=== PATIENT | male | born 1980 | race Caucasian/White ===

== ENCOUNTER 2016-08-27 12:33 | Emergency (ER) | payer OTHER ==
[~2016-08-27] VITALS: Ht 182.9 cm; Wt 94.1 kg
[~2016-08-27 12:33] MED LIST: NAPR1TAB9 PO
[2016-08-27 12:39] VITALS: Ht 182.9 cm; Wt 94.1 kg
[2016-08-27] MEDS ORDERED: SODIUM CHLORIDE 0.9% 1000ML 1,000 ML IV STA (13:10)
--- NOTE | 2016-08-27 13:15 | EMERGENCY ROOM VISIT NOTE ---
History First contact with patient: 13:01 Chief Complaint: CHEST PAIN Stated Complaint: CHEST PAIN Nursing Triage Summary: pt has had this same chest pain for 1-2 years. pt points to left shoulder as location of pain. pain is constant for a few hours once or twice a week. has never seen a pcp. states had dry mouth with it today and felt weaker. History of Present Illness The patient is a 36 year old male who presents to the Emergency Department by private vehicle for evaluation of his LEFT sided chest pain. The patient reports that while working at approximately 9 to 9:30 AM, he noticed pain to the LEFT-sided anterior chest. He is experienced similar symptoms over the past year. 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 He is uncertain if his pain is worse with exertion. He reports pain radiates back to his back as well. He denies any radiation down the arm or into the jaw. He reports no personal history of cardiac disease. He has a family history of father and paternal grandfather who in their 50s secondary to MIs. The patient denies any short suppressed. He does report some palpitations as well as dizziness with changes in position. He rates his current discomfort as 2/10. He denies any headaches , fevers, chills, recent illness, cough, nausea, vomiting, or abdominal pain. Review of Systems A complete 10-point Review of Systems was discussed with the patient, with pertinent positives and negatives listed in the History of Present Illness. All remaining Review of Systems questions can be considered negative unless otherwise specified. Past Medical/Surgical History Medical Problems: (1) Abscess (2) Allergic reaction Family History FH: heart disease Social History Smoking Status: Current Every Day Smoker Smokeless Tobacco Use: No Drug Use: none, other Marital Status: single Occupation Status: employed Current/Historical Medications No Active Prescriptions or Reported Meds Allergies Coded Allergies: No Known Allergies (Unverified , 01/27/15) Physical Exam Vital Signs Date Time Temp Pulse Resp B/P Pulse Ox O2 Delivery O2 Flow Rate FiO2 08/27/16 16:47 37.2 70 18 111/57 99 08/27/16 16:11 70 18 111/57 99 08/27/16 14:13 97 Room Air 08/27/16 14:03 81 18 97 08/27/16 13:33 84 9 98 08/27/16 13:27 111/57 08/27/16 13:03 91 7 08/27/16 12:52 101 08/27/16 12:44 Room Air 08/27/16 12:39 37.2 98 18 168/85 97 Room Air Pain Rating (0-10): 2 Physical Exam VITAL SIGNS - Vital signs and nursing notes were reviewed. GENERAL - 36-year-old male appearing his stated age who is in no acute distress. Communicates well with provider and answers questions appropriately. LUNGS - Chest wall symmetric without accessory muscle use, intercostals retractions, or central cyanosis. Normal vesicular breath sounds CTA B/L. No wheezes, rales, or rhonchi appreciated. CARDIAC - RRR with S1/S2. No murmur, rubs, or gallops appreciated. No reproducible tenderness to palpation appreciated over the anterior chest wall. ABDOMEN - Abdominal contour flat and without pulsations or visible masses. BS normoactive all four quadrants. No tenderness, palpable masses, hepatosplenomegaly, or ascites noted. EXTREMITIES - No clubbing or peripheral cyanosis. No pretibial edema present. +3 /5 radial and dorsalis pedis pulses palpated throughout. +5/5 strength noted in UE/LE bilaterally. NEUROLOGIC - Cranial nerves II through XII grossly intact. Sensory intact to light touch throughout. PSYCH - A&Ox3 and cooperates fully with examiner. Pt is very pleasant and interacts well with examiner. Medical Decision & Procedures ER Provider Diagnostic Interpretation: Radiological imaging and reports were reviewed by myself. Radiologist's Interpretation as follows: CHEST ONE VIEW PORTABLE CLINICAL HISTORY: Atypical chest pain COMPARISON STUDY: 01/23/2015 FINDINGS: The cardiac and mediastinal contours are normal. There is no evidence of focal pulmonary consolidation. There is no evidence of failure. No pleural effusions are visualized.[ IMPRESSION: No active disease in the chest. Laboratory Results 08/27/16 12:50 Red Blood Count 4.95, Mean Corpuscular Volume 91.5, Mean Corpuscular Hemoglobin 31.5, Mean Corpuscular Hemoglobin Concent 34.4, Mean Platelet Volume 9.3, Neutrophils (%) (Auto) 69.8, Lymphocytes (%) (Auto) 22.8, Monocytes (%) (Auto) 5.9, Eosinophils (%) (Auto) 0.9, Basophils (%) (Auto) 0.3, Neutrophils # (Auto) 4.85, Lymphocytes # (Auto) 1.58, Monocytes # (Auto) 0.41, Eosinophils # (Auto) 0.06, Basophils # (Auto) 0.02 08/27/16 12:50 Test 08/27/16 12:50 08/27/16 14:13 White Blood Count 6.94 K/uL (4.8-10.8) Red Blood Count 4.95 M/uL (4.7-6.1) Hemoglobin 15.6 g/dL (14.0-18.0) Hematocrit 45.3 % (42-52) Mean Corpuscular Volume 91.5 fL (80-100) Mean Corpuscular Hemoglobin 31.5 pg (25-34) Mean Corpuscular Hemoglobin Concent 34.4 g/dl (32-36) Platelet Count 179 K/uL (130-400) Mean Platelet Volume 9.3 fL (7.4-10.4) Neutrophils (%) (Auto) 69.8 % Lymphocytes (%) (Auto) 22.8 % Monocytes (%) (Auto) 5.9 % Eosinophils (%) (Auto) 0.9 % Basophils (%) (Auto) 0.3 % Neutrophils # (Auto) 4.85 K/uL (1.4-6.5) Lymphocytes # (Auto) 1.58 K/uL (1.2-3.4) Monocytes # (Auto) 0.41 K/uL (0.11-0.59) Eosinophils # (Auto) 0.06 K/uL (0-0.5) Basophils # (Auto) 0.02 K/uL (0-0.2) RDW Standard Deviation 45.2 fL (36.4-46.3) RDW Coefficient of Variation 13.6 % (11.5-14.5) Immature Granulocyte % (Auto) 0.3 % Immature Granulocyte # (Auto) 0.02 K/uL (0.00-0.02) Prothrombin Time 11.3 SECONDS (9.0-12.0) Prothromb Time International Ratio 1.1 (0.9-1.1) Activated Partial Thromboplast Time 25.2 SECONDS (21.0-31.0) Partial Thromboplastin Ratio 1.0 Anion Gap 8.0 mmol/L (3-11) Est Creatinine Clear Calc Drug Dose 129.3 ml/min Estimated GFR () 119.7 Estimated GFR (Non- 103.3 BUN/Creatinine Ratio 14.7 (10-20) Calcium Level 8.9 mg/dl (8.5-10.1) Magnesium Level 1.8 mg/dl (1.8-2.4) Total Bilirubin 0.7 mg/dl (0.2-1) Aspartate Amino Transf (AST/SGOT) 93 U/L (15-37) Alanine Aminotransferase (ALT/SGPT) 174 U/L (12-78) Alkaline Phosphatase 103 U/L (45-117) Total Creatine Kinase 330 U/L (39-308) Creatine Kinase MB 4.1 ng/ml (0.5-3.6) Creatine Kinase MB Ratio 1.2 (0-3.0) Total Protein 7.9 gm/dl (6.4-8.2) Albumin 4.3 gm/dl (3.4-5.0) Globulin 3.6 gm/dl (2.5-4.0) Albumin/Globulin Ratio 1.2 (0.9-2) Lipase 152 U/L (73-393) Thyroid Stimulating Hormone (TSH) 0.744 uIu/ml (0.300-4.500) Bedside D-Dimer 137 ng/mlFEU (0-450) Bedside Troponin I 0.000 ng/ml (0-0.045) Medications Administered Medications (Trade) Dose Ordered Sig/Saira Route Start Time Stop Time Status Last Admin Dose Admin Sodium Chloride 1,000 ml @ 250 mls/hr Q4H STAT IV 08/27/16 13:10 08/27/16 17:09 DC 08/27/16 13:22 250 MLS/HR Sodium Chloride (Nss 500ml) 500 ml @ 999 mls/hr Q31M STAT IV 08/27/16 14:46 08/27/16 15:16 DC 08/27/16 14:46 999 MLS/HR Procedure Patient was placed on the cardiac/vascular sonographer and monitored throughout the entire extent of their stay. In addition, the patient's pulse oximetry was monitored throughout the entire stay. Any abnormalities or aberrancies were addressed appropriately. ECG Indication: chest pain Rate (beats per minute): 101 Rhythm: sinus tachycardia Findings: no acute ischemic change, no ectopy Comparison ECG Date: no prior available ED Course Patient was seen and evaluated by myself. Labs were drawn, saline lock in place. EKG and chest x-rays were obtained. Patient was hydrated with normal saline. Laboratory results demonstrate no acute leukocytosis, worrisome anemia , or bandemia. Patient has no significant electrolyte abnormalities. Cardiac enzymes are negative. Troponin was negative. Patient was reevaluated and reports feeling much better at this time. He feels less palpitations. He was hydrated with 500 mL normal saline bolus and repeat troponin was obtained. Repeat troponin was negative. Laboratory results and imaging studies were reviewed with the patient who acknowledges understand. The patient was encouraged to follow-up with his primary care provider from today's visit. He was educated on worrisome symptoms for return visit to the emergency department. Patient discharged home afebrile and in good condition. Medical Decision Given the patient's presentation and stated complaint, I did elect to perform the above-mentioned workup. The patient presents to the emergency Department with complaints of LEFT-sided chest pain and palpitations. He does admit to drinking heavy doses of caffeine this morning. He felt jittery on arrival. He responded well to IV fluid hydration alone. His pain is not exertional. He does have a significant history, however his pain is certainly atypical. EKG is unremarkable. Chest demonstrate no acute findings. Troponin was negative 2 despite ongoing symptoms for the past 8 hours. Patient feels much better at this time. He will decrease his caffeine use. He'll follow-up with his primary care provider from today's visit. He will return to the emergency department in the setting of any changing or worsening symptoms. Patient discharged home in good condition. In the evaluation and treatment of this patient, the following differential diagnoses were considered: NH, ASC, Dysrhythmia, Angina, Mediastinitis, GERD, Esophagitis, PE, Pneumonia, Bronchitis, Costochondritis, Rib Fracture, Zoster. Impression Primary Impression: Left sided chest pain Additional Impression: Palpitations Departure Information Dispostion Home / Self-Care Condition GOOD Prescriptions No Active Prescriptions or Reported Meds Referrals No Doctor, Assigned (PCP) Patient Instructions Chest Pain - [facility], ED Palpitations, My [facility] Additional Instructions You have been treated in the Emergency Department for your Chest Pain and Palpitation. Laboratory results and Imaging Studies have ruled out any cardiac or pulmonary cause of your chest pain. For pain control, you can use the following [id number] medicines (if >12 yo): - Regular strength (325mg/tab) Tylenol (acetaminophen) 2 tabs every 4-6 hours as needed. Do not exceed 12 tablets in a 24 hour period. Avoid taking more than 4 grams (4000 mg) of Tylenol per day. This includes any other sources of acetaminophen you may take on a regular basis. - Regular strength (200 mg/tab) Advil (ibuprofen) 1-2 tabs every 4-6 hours as needed. Do not exceed a dose of 3200 mg per day. You should schedule a follow-up appointment with your Primary Care Provider in 2 -3 days for further evaluation from today's Emergency Department visit. Return to the Emergency Department if your current symptoms worsen despite treatment course outlined above, or if you develop any of the following symptoms : worsening chest pain, associated jaw/arm pain, nausea, dizziness, shortness of breath, bloody cough, or fainting. Problem Qualifiers
[2016-08-27 13:27] LABS: BASO % 0.3 %; BASO ABS # 0.02 K/uL (0-0.2); COMPLETE YES; EOS % 0.9 %; HEMATOCRIT 45.3 % (42-52); IG% 0.3 %; LYMPH % 22.8 %; LYMPH ABS # 1.58 K/uL (1.2-3.4); MEAN CELL VOLUME 91.5 fL (80-100); MEAN CORPUSCULAR HEMOGLOBIN 31.5 pg (25-34); MEAN CORPUSCULAR HGB CONC 34.4 g/dl (32-36); MEAN PLATELET VOLUME 9.3 fL (7.4-10.4); MONO % 5.9 %; NEUT % 69.8 %; PLATELET COUNT 179 K/uL (130-400); RED BLOOD COUNT 4.95 M/uL (4.7-6.1); WHITE BLOOD COUNT 6.94 K/uL (4.8-10.8)
--- NOTE | 2016-08-27 13:47 | DIAGNOSTIC IMAGING REPORT ---
CHEST ONE VIEW PORTABLE CLINICAL HISTORY: Atypical chest pain COMPARISON STUDY: 01/23/2015 FINDINGS: The cardiac and mediastinal contours are normal. There is no evidence of focal pulmonary consolidation. There is no evidence of failure. No pleural effusions are visualized.[ IMPRESSION: No active disease in the chest. Electronically signed by: Lazaro Cruz M.D. 08/27/2016 1:45 PM Dictated Date/Time: 08/27/2016 1:45 PM
[2016-08-27 13:52] LABS: INR 1.1 (0.9-1.1); PROTHROMBIN TIME (PATIENT) 11.3 SECONDS (9.0-12.0)
[2016-08-27 13:59] LABS: BUN/CREATININE RATIO 14.7 (10-20); CALCIUM 8.9 mg/dl (8.5-10.1); CREATININE 0.95 mg/dl (0.60-1.40); MAGNESIUM 1.8 mg/dl (1.8-2.4); POTASSIUM 3.6 mmol/L (3.5-5.1)
[2016-08-27 14:10] LABS: ALB/GLOB RATIO 1.2 (0.9-2); CKMB/CK RATIO 1.2 (0-3.0); THYROID STIMULATING HORMONE 0.744 uIu/ml (0.300-4.500)
[2016-08-27 14:13] VITALS: O2SAT 97
[2016-08-27] MEDS ORDERED: SODIUM CHLORIDE 0.9% 500ML 500 ML IV STA (14:46)
[2016-08-27 16:47] VITALS: BP 111/57; PULSE 70; TEMP 37.2; O2SAT 99
== END 2016-08-27 16:48 | disposition home or self-care (01) ==
LOC: C.EDB 12:34
DX: R07.9 Chest pain, unspecified (principal); R00.2 Palpitations; R00.0 Tachycardia, unspecified; Z82.49 Family history of ischemic heart disease and other diseases of the circulatory system; F17.200 Nicotine dependence, unspecified, uncomplicated

== ENCOUNTER 2016-09-21 10:01 | Emergency (ER) | payer OTHER ==
[~2016-09-21] VITALS: Ht 182.9 cm; Wt 84.8 kg
[2016-09-21 10:06] VITALS: TEMP 37.3; Ht 182.9 cm; Wt 84.8 kg
[2016-09-21 10:42] VITALS: O2SAT 95
[2016-09-21 10:55] LABS: ISTAT CREATININE 0.9 mg/dl (0.6-1.3); ISTAT HEMOGLOBIN 15.6 g/dl (14.0-18.0); ISTAT IONIZED CALCIUM 1.15 mmol/l (1.12-1.32)
--- NOTE | 2016-09-21 10:58 | DIAGNOSTIC IMAGING REPORT ---
SINGLE VIEW CHEST CLINICAL HISTORY: Fever. Sepsis. FINDINGS: 2 AP, portable, upright chest radiographs are compared to study dated 08/27/2016. The examination is degraded by portable technique and patient rotation. The cardiomediastinal silhouette is unremarkable. The lungs and pleural spaces are clear. No pneumothorax is seen. The bony thorax is grossly intact. Nipple piercings are noted. IMPRESSION: No active disease in the chest. Electronically signed by: Roque Mcdermott M.D. 09/21/2016 10:57 AM Dictated Date/Time: 09/21/2016 10:56 AM
[2016-09-21 11:01] LABS: POINT OF CARE TROPONIN I 0.01 ng/ml (0-0.045)
[2016-09-21 12:02] VITALS: BP 127/71; O2SAT 96
--- NOTE | 2016-09-21 12:16 | EMERGENCY ROOM VISIT NOTE ---
History Report prepared by Alistair: Dale Campos Under the Supervision of: Dr. Jesse García D.O. First contact with patient: 10:20 Chief Complaint: CHEST PAIN Stated Complaint: CHEST PAIN Nursing Triage Summary: "I was here 1 month ago for chest pains. pain never got any better. I went to [facility] yesterday and they told me my right side of my heart is faster than the left side." no pain at present time. I was working and my chest was pounding I felt light headed and my arms went numb. patient denies hx of anxiety History of Present Illness The patient is a 36 year old male who presents to the Emergency Room with complaints of chest pain that occurred this morning. He is currently not experiencing this chest pain. The patient was at work this morning when his heart began to pound. He then began to experience a pressure like pain in his chest. His bilateral arms went numb and he was lightheaded as well. He was here in the ED 1 month ago for similar pain. They told him he had a sensitivity to caffeine. He did not drink any this morning. Yesterday, he went to [facility] and was told that his "heart is fast on the right than it is on the left." He denies any history of anxiety. He received an ECG yesterday from his PCP that showed he has RBBB. Source of History: patient Onset: this morning Position: chest Symptom Intensity: minimal Quality: pressure Timing: resolved Associated Symptoms: + numbness Note: He experienced lightheadedness. He denies any other abnormal symptoms. Review of Systems See HPI for pertinent positives & negatives. A total of 10 systems reviewed and were otherwise negative. Past Medical & Surgical Medical Problems: (1) Abscess (2) Allergic reaction Family History FH: heart disease Social History Smoking Status: Former Smoker Smokeless Tobacco Use: No Drug Use: none, other Marital Status: single Occupation Status: employed Current/Historical Medications No Active Prescriptions or Reported Meds Allergies Coded Allergies: No Known Allergies (Unverified , 01/27/15) Physical Exam Vital Signs Date Time Temp Pulse Resp B/P Pulse Ox O2 Delivery O2 Flow Rate FiO2 09/21/16 12:34 71 09/21/16 12:02 78 18 127/71 96 Room Air 09/21/16 10:42 95 Room Air 09/21/16 10:28 83 09/21/16 10:06 37.3 91 18 134/81 94 Room Air Physical Exam CONSTITUTIONAL/VITAL SIGNS: Reviewed / noted above. GENERAL: Non-toxic in appearance. INTEGUMENTARY: Warm, dry, and [place]. HEAD: Normocephalic. EYES: without scleral icterus or trauma. ENT/OROPHARYNX: clear and moist. LYMPHADENOPATHY/NECK: Is supple without lymphadenopathy or meningismus. RESPIRATORY: Lungs clear and equal. CARDIOVASCULAR: Regular rate and rhythm. GI/ABDOMEN: Soft and nontender. No organomegaly or pulsatile mass. No rebound or guarding. Normal bowel sounds. EXTREMITIES: Warm and well perfused. BACK: No CVA tenderness. NEUROLOGICAL: Intact without focal deficits. PSYCHIATRIC: normal affect. MUSCULOSKELETAL: Normally developed with good muscle tone. Medical Decision & Procedures ER Provider Diagnostic Interpretation: Radiology results as stated below per my review and radiologist interpretation: SINGLE VIEW CHEST CLINICAL HISTORY: Fever. Sepsis. FINDINGS: 2 AP, portable, upright chest radiographs are compared to study dated 08/27/2016. The examination is degraded by portable technique and patient rotation. The cardiomediastinal silhouette is unremarkable. The lungs and pleural spaces are clear. No pneumothorax is seen. The bony thorax is grossly intact. Nipple piercings are noted. IMPRESSION: No active disease in the chest. Electronically signed by: Roque Mcdermott M.D. 09/21/2016 10:57 AM Dictated Date/Time: 09/21/2016 10:56 AM Laboratory Results Test 09/21/16 10:41 Bedside Hemoglobin 15.6 g/dl (14.0-18.0) Bedside Hematocrit 46 % (42-52) Bedside D-Dimer 110 ng/mlFEU (0-450) Bedside Sodium 140 mEq/L (135-144) Bedside Potassium 4.4 mEq/L (3.3-5.0) Bedside Chloride 104 mEq/L (101-112) Bedside Total CO2 25 mEq/l (24-31) Anion Gap 16.0 mmol/L (16-25) Bedside Blood Urea Nitrogen 20 mg/dl (7-18) Bedside Creatinine 0.9 mg/dl (0.6-1.3) Bedside Glucose (other) 115 mg/dl (70-99) Bedside Ionized Calcium (Kishor) 1.15 mmol/l (1.12-1.32) Bedside Troponin I 0.010 ng/ml (0-0.045) Laboratory results as stated above per my review. ECG Indication: chest pain Rate (beats per minute): 75 Rhythm: normal sinus Findings: no acute ischemic change, no ectopy ED Course 1020: Previous medical records were reviewed. The patient was evaluated in room B8. A complete history and physical examination was performed. 1217: On reevaluation, the patient is resting. I discussed the results and findings with the patient. He verbalized agreement of the treatment plan. He was discharged home. Medical Decision The differentials considered include acute myocardial infarction, acute coronary syndrome, myocarditis, pericarditis, pericardial effusions /tamponade, esophageal perforation, thoracic aortic dissection, pulmonary embolism, pneumonia, pneumothorax, pancreatitis, shingles, acute cholecystitis, perforated abdominal viscus. Is a 36-year-old male who presents to the ED with a chief complaint of dizziness , can't mouth, chest pain, arm tingling. The patient was seen for the same about a month ago. He states that he quit smoking since that time. He states that his symptoms have been worsening for the past couple weeks. Further details listed above. The patient's symptoms have currently abated. He has a normal exam. His EKG shows a normal sinus rhythm. Troponin is negative. D- dimer is negative. Hemoglobin is normal. PRP is normal. The patient was told results the test. He is felt to be stable for discharge and outpatient follow- up. His PCP can further evaluate his symptoms as an outpatient. Anxiety may be a component. Impression Primary Impression: Non-cardiac chest pain Scribe Attestation The scribe's documentation has been prepared under my direction and personally reviewed by me in its entirety. I confirm that the note above accurately reflects all work, treatment, procedures, and medical decision making performed by me. Departure Information Dispostion Home / Self-Care Prescriptions No Active Prescriptions or Reported Meds Referrals No Doctor, Assigned (PCP) Forms HOME CARE DOCUMENTATION FORM, IMPORTANT VISIT INFORMATION Patient Instructions My [facility] Additional Instructions Follow-up with your doctor for further care and evaluation in 1 week if symptoms persist. Return to the emergency department for worsening or new symptoms or any concerns. You have been examined and treated today on an emergency basis only. This is not a substitute for, or an effort to provide, complete comprehensive medical care. It is impossible to recognize and treat all injuries or illnesses in a single emergency department visit. It is therefore important that you follow up closely with your doctor. Call as soon as possible for an appointment.
[2016-09-21 12:34] VITALS: PULSE 71
== END 2016-09-21 12:49 | disposition home or self-care (01) ==
LOC: C.EDB 10:03
DX: R07.9 Chest pain, unspecified (principal); Z82.49 Family history of ischemic heart disease and other diseases of the circulatory system; Z87.891 Personal history of nicotine dependence

== ENCOUNTER → 2016-10-25 | Outpatient (CLI) | payer OTHER ==
[2016-10-25 13:21] LABS: BASO % 0.3 %; BASO ABS # 0.02 K/uL (0-0.2); COMPLETE YES; EOS % 1.7 %; HEMATOCRIT 46.9 % (42-52); IG% 0.3 %; LYMPH % 23.2 %; LYMPH ABS # 1.52 K/uL (1.2-3.4); MEAN CELL VOLUME 90.9 fL (80-100); MEAN CORPUSCULAR HGB CONC 35.2 g/dl (32-36); MONO % 8.8 %; NEUT % 65.7 %; PLATELET COUNT 186 K/uL (130-400); RED BLOOD COUNT 5.16 M/uL (4.7-6.1); WHITE BLOOD COUNT 6.56 K/uL (4.8-10.8)
[2016-10-25 14:03] LABS: ALT/SGPT 175 U/L (12-78); BLOOD UREA NITROGEN 19 mg/dl (7-18); BUN/CREATININE RATIO 18.9 (10-20); CALCIUM 9.2 mg/dl (8.5-10.1); CARBON DIOXIDE 23 mmol/L (21-32); CHLORIDE 107 mmol/L (98-107); GLUCOSE 91 mg/dl (70-99); POTASSIUM 4.3 mmol/L (3.5-5.1); SODIUM 139 mmol/L (136-145)
[2016-10-25 14:06] LABS: ALB/GLOB RATIO 1.1 (0.9-2); ALKALINE PHOSPHATASE 108 U/L (45-117); AST/SGOT 94 U/L (15-37)
[2016-10-25 14:12] LABS: HEPATITIS B AB POS
[2016-10-25 14:16] LABS: BENZODIAZEPINE, URINE NEG (NEG); COCAINE,URINE NEG (NEG); PHENCYCLIDINE, URINE NEG (NEG)
[2016-10-31 08:00] LABS: HEPATITIS C VIRAL RNA BY PCR 6000000 IU/ML (<15); HEPATITIS C VIRAL RNA(LOG) PCR 6.78 LOG IU/ML (<1.18); LIVER FIBR APOLIPOPROTEIN A-1 154 mg/dL (94-176); LIVER FIBROS ALPHA-2-MACROGLOB 248 mg/dL (106-279); LIVER FIBROSIS GGT 50 U/L (3-90); NECROINFLAMMATION ACT GRADE A3; NECROINFLAMMATION ACT SCORE 0.68
== END | disposition home or self-care (01) ==
LOC: C.LAB1850 11:53
PROVIDERS: ATTEND Internal Medicine Infectious Disease
DX: B18.2 Chronic viral hepatitis C (principal)

== ENCOUNTER → 2016-12-13 | Outpatient (CLI) | payer OTHER ==
[2016-12-13 15:49] LABS: PROTHROMBIN TIME (PATIENT) 11.1 SECONDS (9.0-12.0)
== END | disposition home or self-care (01) ==
LOC: C.LAB 15:14
PROVIDERS: ATTEND Internal Medicine Infectious Disease
DX: B18.2 Chronic viral hepatitis C (principal)

== ENCOUNTER → 2017-01-28 | Outpatient (CLI) | payer OTHER ==
[2017-01-28 16:23] LABS: BASO % 0.3 %; BASO ABS # 0.02 K/uL (0-0.2); COMPLETE YES; EOS % 3.2 %; HEMATOCRIT 43.7 % (42-52); IG% 0.2 %; LYMPH % 32.7 %; LYMPH ABS # 2.13 K/uL (1.2-3.4); MEAN CELL VOLUME 89.9 fL (80-100); MEAN CORPUSCULAR HEMOGLOBIN 32.1 pg (25-34); MEAN CORPUSCULAR HGB CONC 35.7 g/dl (32-36); MONO % 7.1 %; NEUT % 56.5 %; PLATELET COUNT 173 K/uL (130-400); RED BLOOD COUNT 4.86 M/uL (4.7-6.1); WHITE BLOOD COUNT 6.51 K/uL (4.8-10.8)
[2017-01-28 16:49] LABS: ALB/GLOB RATIO 1.2 (0.9-2); ALT/SGPT 38 U/L (12-78); AST/SGOT 28 U/L (15-37); BLOOD UREA NITROGEN 21 mg/dl (7-18); BUN/CREATININE RATIO 21.3 (10-20); CALCIUM 8.9 mg/dl (8.5-10.1); CARBON DIOXIDE 22 mmol/L (21-32); CHLORIDE 110 mmol/L (98-107); GLUCOSE 115 mg/dl (70-99); POTASSIUM 3.6 mmol/L (3.5-5.1); SODIUM 141 mmol/L (136-145)
[2017-01-28 16:50] LABS: ALKALINE PHOSPHATASE 114 U/L (45-117)
[2017-02-01 08:58] LABS: HEPATITIS C VIRAL RNA BY PCR <15 DETECTED IU/ML (<15); HEPATITIS C VIRAL RNA(LOG) PCR <1.18 DETECTED LOG IU/ML (<1.18)
== END | disposition home or self-care (01) ==
LOC: C.LAB1850 14:49
PROVIDERS: ATTEND Internal Medicine Infectious Disease
DX: B18.2 Chronic viral hepatitis C (principal)

== ENCOUNTER → 2017-02-26 | Outpatient (CLI) | payer OTHER ==
[2017-02-26 16:42] LABS: BASO % 0.1 %; BASO ABS # 0.01 K/uL (0-0.2); COMPLETE YES; EOS % 3.1 %; HEMATOCRIT 44.4 % (42-52); IG% 0.2 %; LYMPH ABS # 2.43 K/uL (1.2-3.4); MEAN CELL VOLUME 89.3 fL (80-100); MEAN CORPUSCULAR HEMOGLOBIN 31.8 pg (25-34); MEAN CORPUSCULAR HGB CONC 35.6 g/dl (32-36); MEAN PLATELET VOLUME 9.8 fL (7.4-10.4); MONO % 6.6 %; PLATELET COUNT 178 K/uL (130-400); RED BLOOD COUNT 4.97 M/uL (4.7-6.1); WHITE BLOOD COUNT 9.33 K/uL (4.8-10.8)
[2017-02-26 17:10] LABS: ALT/SGPT 42 U/L (12-78); AST/SGOT 29 U/L (15-37); BLOOD UREA NITROGEN 17 mg/dl (7-18); BUN/CREATININE RATIO 17.8 (10-20); CARBON DIOXIDE 27 mmol/L (21-32); CHLORIDE 104 mmol/L (98-107); CREATININE 0.95 mg/dl (0.60-1.40); GLUCOSE 79 mg/dl (70-99); POTASSIUM 3.8 mmol/L (3.5-5.1); SODIUM 138 mmol/L (136-145)
[2017-02-26 17:13] LABS: ALB/GLOB RATIO 1.3 (0.9-2); ALKALINE PHOSPHATASE 116 U/L (45-117)
[2017-03-01 14:08] LABS: HEPATITIS C VIRAL RNA BY PCR <15 NOT DETECTED IU/ML (<15); HEPATITIS C VIRAL RNA(LOG) PCR <1.18 NOT DETECTED LOG IU/ML (<1.18)
== END | disposition home or self-care (01) ==
LOC: C.LAB1850 15:05
PROVIDERS: ATTEND Internal Medicine Infectious Disease
DX: B18.2 Chronic viral hepatitis C (principal)